=== PATIENT | male | born 1935 | race Caucasian/White ===

== ENCOUNTER 2021-10-25 08:22 | Observation (INO) ==
[2021-10-25] MEDS ORDERED: Naloxone 0.4 MG/ML INJ IVP PRN (10:43)
[2021-10-25] MEDS ORDERED: Ondansetron 4 MG/2 ML VIAL IVP PRN (10:43)
[2021-10-25] MEDS ORDERED: Nitroglycerin 0.4 MG TAB.SUBL SL PRN (10:45)
[2021-10-25] MEDS ORDERED: Perflutren Lipid Microsphere 1.3 ML in 0.9 % Sodium Chloride 8.7 ML IVP PRN (10:45)
[2021-10-25] MEDS ORDERED: Metoprolol XL (24 HR) Succ 25 MG TAB.ER.24H PO SCH (10:45)
[2021-10-25] MEDS ORDERED: Ipratropium/Albuterol Neb 3 ML IH PRN (10:46)
[2021-10-25 11:50] LABS: INR 1.2; Prothrombin Time 12.9 Seconds (9.4-12.1)
[2021-10-25 11:53] LABS: Activated Partial Thrombo Time 41.3 Seconds (26.0-36.0)
[2021-10-25] MEDS ORDERED: Regadenoson 0.4 MG/5 ML SYRINGE IVP ONE (11:57)
[2021-10-25] MEDS: Apixaban 5 MG TABLET PO SCH (20:34)
[2021-10-25] MEDS ORDERED: GuaiFENesin Liq 200 MG/10 ML UDC PO PRN (22:42)
[2021-10-26 02:09] LABS: Basophils # 0.1 K/mcL (0.0-0.2); Basophils % 0.5 %; Eosinophils # 0.1 K/mcL (0.0-0.6); Eosinophils % 1.1 %; Hematocrit 49.4 % (37.5-50.1); Hemoglobin 16.4 g/dL (12.9-16.9); Immature Granulocytes % 0.6 % (0-4); Lymphocytes # 1.7 K/mcL (0.6-4.6); Lymphocytes % 16.8 %; Mean Corpuscular HGB Conc 33.2 g/dL (31.6-35.5); Mean Corpuscular Hemoglobin 31.7 pg (28.0-33.3); Mean Corpuscular Volume 95.4 fL (83.0-100.0); Mean Platelet Volume 10.4 fL (9.4-12.4); Monocytes # 1.2 K/mcL (0.0-1.3); Monocytes % 12.3 %; Neutrophils # 6.9 K/mcL (1.6-8.9); Platelet Count 149 K/mcL (140-400); Red Blood Count 5.18 M/mcL (4.19-5.50); Red Cell Distribution Width 13.4 % (11.5-14.5); Segmented Neutrophils % 68.7 %
[2021-10-26 03:19] LABS: BUN/Creatinine Ratio 19 (6-26); Blood Urea Nitrogen 16 mg/dL (8-23); Calcium 10.1 mg/dL (8.6-10.3); Carbon Dioxide 25 mEq/L (23-29); Chloride 104 mEq/L (98-107); Chol/HDL Ratio 2.9 (0-4.9); Cholesterol 110 mg/dL (< 200); Glucose 106 mg/dL (70-105); HDL Cholesterol 38 mg/dL (40-59); LDL Cholesterol,Calculated 56 mg/dL (< 100); Osmolality,Calculated 284 (280-300); Phosphorous 3.1 mg/dL (2.7-4.5); Potassium 4.6 mEq/L (3.5-5.1); Sodium 136 mEq/L (136-145); Triglycerides 81 mg/dL (< 150); eGFR For African Americans > 60 (> 60); eGFR For Non-African Americans > 60 (> 60)
[2021-10-26 06:58] VITALS: BP 147/65; PULSE 88; TEMP 97.5; O2SAT 93
[2021-10-26] MEDS ORDERED: Aspirin Enteric Coated 81 MG Tablet PO SCH (09:00)
[2021-10-26] MEDS: Apixaban 5 MG TABLET PO SCH (09:07)
== END 2021-10-26 11:35 | disposition home or self-care (01) ==
LOC: 3BNU → SUATTDRO 10:34
PROVIDERS: ADMIT Internal Medicine; ATTEND Registered Nurse